=== PATIENT | female | born 1990 | race Caucasian/White ===

== ENCOUNTER 2016-10-27 12:39 | Emergency (ER) | payer MEDICAID, OTHER ==
[2016-10-27 12:50] VITALS: BP 137/87; RESP 18
[2016-10-27 12:52] VITALS: PULSE 82; TEMP 98.2; O2SAT 97
[2016-10-27 13:27] LABS: RBC URINE 1 /hpf (0-3); URINE BILIRUBIN NEGATIVE (NEGATIVE); URINE BLOOD NEGATIVE (NEGATIVE); URINE COLOR YELLOW (YELLOW); URINE GLUCOSE (UA) NEG (Normal); URINE KETONE NEGATIVE (NEGATIVE); URINE LEUKOCYTE ESTERASE NEG Leu/uL (Negative); URINE PROTEIN NEGATIVE (NEGATIVE); URINE UROBILINOGEN 0.2-1.0 mg/dL (0.2-1.0); WBC URINE < 1 /hpf (0-5)
--- NOTE | 2016-10-27 13:51 | ED PDOC ---
HPI: Female Pain Time Seen by Provider: 10/27/16 13:05 Chief Complaint (Nursing): Abdominal Pain Chief Complaint (Provider): suprapubic pain History Per: Patient History/Exam Limitations: no limitations Onset/Duration Of Symptoms: Days (2) Current Symptoms Are (Timing): Still Present Severity: Moderate Pain Scale Rating Of: 4 Quality Of Discomfort: Cramping Associated Symptoms: denies: Fever, Chills, Nausea, Vomiting, Diarrhea, Loss Of Appetite, Back Pain, Chest Pain, Constipation, Urinary Symptoms Additional Complaint(s): 26yo F 17weeks in ED with 2d of suprepubc pain without N/V/F admits pain radiates to back. denies vaginal bleeding. Abnormal Vaginal Bleeding: No Past Medical History Reviewed: Historical Data, Nursing Documentation, Vital Signs Vital Signs: Last Vital Signs Temp 98.2 F 10/27/16 12:49 Pulse 82 10/27/16 12:49 Resp 18 10/27/16 12:49 BP 137/87 10/27/16 12:49 Pulse Ox 97 10/27/16 12:49 - Medical History PMH: No Chronic Diseases - Surgical History Surgical History: - Family History Family History: States: Unknown Family Hx - Immunization History Hx Tetanus Toxoid Vaccination: No Hx Influenza Vaccination: No Hx Pneumococcal Vaccination: No - Home Medications Home Medications: Ambulatory Orders Medication Instructions Recorded Bacitracin Ointment [Bacitracin] 1 applic TOP BID #1 tube 10/30/15 Sulfamethoxazole/Trimethoprim 1 tab PO BID #20 tab 10/30/15 [Bactrim DS 800 mg-160 mg] Metaxalone [Skelaxin] 800 mg PO TID PRN #20 tablet 06/09/16 Naproxen [Naprosyn] 500 mg PO BID #20 tab 06/09/16 traMADol [Ultram] 50 mg PO TID PRN #15 tab 06/09/16 - Allergies Allergies/Adverse Reactions: Allergies Allergy/AdvReac Type Severity Reaction Status Date / Time doxycycline Allergy RASH Verified 10/27/16 12:48 Review of Systems ROS Statement: Except As Marked, All Systems Reviewed And Found Negative Gastrointestinal: Positive for: Abdominal Pain Genitourinary Female: Negative for: Dysuria, Vaginal Discharge, Vaginal Bleeding Physical Exam - Reviewed Nursing Documentation Reviewed: Yes Vital Signs Reviewed: Yes - Physical Exam Appears: Positive for: Non-toxic, No Acute Distress, Uncomfortable Head Exam: Positive for: ATRAUMATIC, NORMAL INSPECTION, NORMOCEPHALIC Skin: Positive for: Normal Color, Warm, DRY Cardiovascular/Chest: Positive for: Regular Rate, Rhythm Respiratory: Positive for: CNT, Normal Breath Sounds Gastrointestinal/Abdominal: Positive for: Bowel Sounds, Soft, Tenderness ( suprapubic pain) Back: Positive for: Normal Inspection. Negative for: L CVA Tenderness, R CVA Tenderness Extremity: Positive for: Normal ROM Neurologic/Psych: Positive for: Alert, Oriented - ECG O2 Sat by Pulse Oximetry: 97 - Progress ED Course And Treament: impression: UTI will do UA and give Tylenol Medical Decision Making Medical Decision Making: Pt with normal US and negative for UTI however urine C&S will be sent and pt advised that pain may be due to positioning of baby or round ligamnet pain. advised to f.u with obgyn Disposition - Clinical Impression Clinical Impression: Abdominal pain during - Patient ED Disposition Is Patient to be Admitted: No Counseled Patient/Family Regarding: Need For Followup - Disposition Disposition: Routine/Home Disposition Time: 15:23 Condition: STABLE Instructions: Abdominal Pain in (ED)
--- NOTE | 2016-10-27 15:26 | US ---
Pelvic ultrasound History: Abdominal pain. Comparison: None. Technique: Transabdominal ultrasonography images of the pelvis. Findings: Single intrauterine gestation seen. The cervix is closed and measures 6 centimeters. The placenta appears posterior. The relationship of the placenta to the inner cervical os is not clearly seen. motion identified. cardiac motion also seen with beats per minute: 158. Biparietal diameter 4 centimeter Abdominal circumference 12.4 centimeter Head circumference 14.7 centimeter Femur length 2.8 centimeter Mean ultrasound age: 18 weeks 1 day. No significant free fluid in the cul-de-sac. Ovaries not seen. Impression: Single intrauterine gestational with mean ultrasound age of 18 weeks 1 day. cardiac motion seen. Beats per minute: 158 The placenta is posterior. The relationship of the placenta to the cervical os is not clearly seen. Please note that this is not complete anatomical survey. This evaluation was performed on an emergent basis. Followup complete anatomical survey recommended as per protocol.
== END 2016-10-27 16:37 | disposition home or self-care (01) ==
LOC: H.ER 12:39
DX: O26.899 Other specified pregnancy related conditions, unspecified trimester (principal)

== ENCOUNTER 2018-05-27 14:43 | Emergency (ER) | payer OTHER, MEDICAID ==
[2017-12-31 11:44] VITALS: BMI 32.1
== END 2018-05-27 15:50 | disposition home or self-care (01) ==
LOC: H.EROB2 14:43
DX: O26.93 Pregnancy related conditions, unspecified, third trimester (principal); R10.2 Pelvic and perineal pain; Z3A.37 37 weeks gestation of pregnancy